=== PATIENT | male | born 1960 | race Caucasian/White ===

== ENCOUNTER 2016-05-08 06:00 | Day surgery (SDC) | payer MEDICAID ==
[~2016-05-08 06:00] MED LIST: ceFAZolin 2 GM/DEXTROSE 100 ML IV ONE
[2016-05-08] MEDS ORDERED: LR 1,000 ML IV ONE (06:16)
[2016-05-08] MEDS ORDERED: LIDOCAINE 1% 5 ML SDV ID PRN (06:16)
[2016-05-08] MEDS ORDERED: LIDOCAINE 1% 2 ML INJ ONE (06:29)
[2016-05-08 06:53] LABS: % IMMATURE GRANULYOCYTES 0.6 % (0.0-1.1); ABSOLUTE IMMATURE GRANULOCYTES 0.04 10^3/uL (0.00-0.10); ADD DIFF? NO; ADD MORPH? NO; ADD SCAN? NO; ATYPICAL LYMPHOCYTE FLAG 0 (0-99); FRAGMENT RBC FLAG 0 (0-99); HEMATOCRIT 37.7 % (40.0-51.0); HEMOGLOBIN 12.2 g/dL (13.7-17.5); LEFT SHIFT FLG 0 (0-99); LIPEMIA HEMOLYSIS FLAG 80 (0-99); MEAN CELL HEMOGLOBIN 26.9 pg (27.9-34.1); MEAN CELL HEMOGLOBIN CONCENTR. 32.4 g/dL (32.4-36.7); MEAN PLATELET VOLUME 8.5 fL (8.7-11.7); PLATELET CLUMPS FLAG 0 (0-99); PLATELET COUNT 353 10^3/uL (150-400); RED BLOOD CELL COUNT 4.54 10^6/uL (4.40-6.38); RED CELL DISTRIBUTION WIDTH 15.4 % (11.5-15.2)
[2016-05-08] MEDS ORDERED: BUPIVACAINE 0.5% 30 ML SDV ONE (06:56)
[2016-05-08 07:06] LABS: ANION GAP 12 mEq/L (8-16); CALCIUM 10.2 mg/dL (8.5-10.4); CARBON DIOXIDE 24 mEq/l (22-31); CHLORIDE 107 mEq/L (97-110); CREATININE 0.8 mg/dL (0.7-1.3); GLOMERULAR FILTRATION RATE > 60; GLUCOSE 91 mg/dL (70-100); POTASSIUM 4.5 mEq/L (3.5-5.2); SODIUM 143 mEq/L (134-144)
[2016-05-08] MEDS ORDERED: PROPOFOL 200 MG/20 ML VIAL ONE (07:23)
[2016-05-08] MEDS ORDERED: MIDAZOLAM 2 MG/2 ML VIAL ONE (07:23)
[2016-05-08] MEDS ORDERED: fentaNYL 100 MCG/2 ML INJ ONE ×3 (07:23→09:13)
[2016-05-08] MEDS ORDERED: ROCURONIUM 50 MG/5 ML VIAL ONE (07:24)
[2016-05-08] MEDS ORDERED: DEXAMETHASONE 4 MG/ML VIAL ONE (07:24)
[2016-05-08] MEDS ORDERED: LIDOCAINE 2% 5 ML SDV ONE (07:24)
[2016-05-08] MEDS ORDERED: ONDANSETRON 4 MG/2 ML VIAL ONE (08:20)
--- NOTE | 2016-05-08 09:00 | GOP ---
[f rep st] OPERATIVE REPORT DATE OF OPERATION: 05/08/2016 SURGEON: Dania Zambrano MD BACTERIOLOGIST PHARMACEUTICAL: Emerita Wheeler PA-C. ANESTHESIA: Adelso Gutierrez MD/general. PREOPERATIVE DIAGNOSIS: Right inguinal hernia. POSTOPERATIVE DIAGNOSIS: Initial right indirect inguinal hernia. PROCEDURE PERFORMED: Open right inguinal hernia repair with mesh. FINDINGS: Indirect inguinal hernia. SPECIMENS: Sac. ESTIMATED BLOOD LOSS: 10 cc. INDICATIONS: The patient is a 55-year-old man who has a right inguinal hernia. When he reduces it, he feels fluid gurgle. DESCRIPTION OF PROCEDURE: The patient was brought into the operating room, placed supine on the table, and general anesthesia was administered. His right groin was prepped and draped in usual sterile fashion. I used 10 cc to perform an ileal inguinal nerve block. I used 10 cc of 0.5% Marcaine to infiltrate over the area of the incision. I made an incision in the natural skin crease. I dissected down through the subcutaneous tissues until I encountered the aponeurosis of the external oblique. I divided this with Metzenbaum scissors in the direction of its fibers. I cleared it. I encircled the hernia sac and the cord and cord structures with a [place] drain. I dissected the hernia sac away from the cord and cord structures. It was extremely well adhered to the testicle as well as to the cord and cord structures. I suture ligated the sac. I had to reduce a small amount of omentum in order to close the sac easily. I placed a piece of self-fixating ProGrip mesh and sutured this to the pubic tubercle, conjoined tendon superiorly, inguinal ligament inferiorly. I placed a slit in the mesh and crossed the tails to recreate the internal ring. I closed the aponeurosis of the external oblique with 2-0 Vicryl. I closed Gabi 's with 3-0 Vicryl. I closed the skin with 3-0 Vicryl, followed by 4-0 Monocryl. Mastisol, Steri-Strips, sterile dressing were applied. He was awakened in the operating room, extubated, transferred to PACU in stable condition. /[id number]/MODL MTDD
[2016-05-08] MEDS ORDERED: HYDROCODONE/APAP 5/325 TAB ONE (10:29)
== END 2016-05-08 11:20 | disposition home or self-care (01) ==
LOC: FSGY 06:00
PROVIDERS: ATTEND Surgery
PROC: 0YU50JZ Supplement Right Inguinal Region with Synthetic Substitute, Open Approach (ICD-10-PCS; principal; 2016-05-08 07:30)
DX: K40.90 Unilateral inguinal hernia, without obstruction or gangrene, not specified as recurrent (principal); E78.5 Hyperlipidemia, unspecified; I10 Essential (primary) hypertension; R01.1 Cardiac murmur, unspecified; Z87.820 Personal history of traumatic brain injury; Z87.891 Personal history of nicotine dependence
CPT/HCPCS: C1781; J0690; J1100; J2250; J2405; J2704; J3010